=== PATIENT | female | born 1990 | race Caucasian/White ===

== ENCOUNTER 2017-04-16 10:01 | Emergency (ER) | payer MEDICAID ==
[~2017-04-16] VITALS: Ht 160 cm; Wt 66.0 kg
[~2017-04-16 10:01] MED LIST: SYNT25TA PO
[2017-04-16 10:02] VITALS: BP 118/75; PULSE 77; RESP 15; TEMP 98.3; O2SAT 99
[2017-04-16] MEDS ORDERED: SODIUM CHLOR 0.9% 1000 ML INJ 1,000 ML IV ONE (10:30)
[2017-04-16 11:18] LABS: AUTOMATED NEUTROPHIL # 6.4 TH/MM3 (1.8-7.7); BASOPHIL # 0.1 TH/MM3 (0-0.2); BASOPHIL % 0.9 % (0.0-2.0); EOSINOPHIL # 0.2 TH/MM3 (0-0.4); EOSINOPHIL % 1.9 % (0.0-4.0); HEMATOCRIT 42.4 % (35.0-46.0); HEMO FLAGS DIFF FINAL; LYMPHOCYTE # 2.2 TH/MM3 (1.0-4.8); MEAN CELL VOLUME 83.8 FL (80.0-100.0); MEAN CORPUSCULAR HEMOGLOBIN 27.6 PG (27.0-34.0); MONO % 8.3 % (0.0-8.0); NEUT % 65.9 % (16.0-70.0); PLATELET COUNT 195 TH/MM3 (150-450); RED BLOOD COUNT 5.06 MIL/MM3 (4.00-5.30); WHITE BLOOD COUNT 9.7 TH/MM3 (4.0-11.0)
--- NOTE | 2017-04-16 11:33 | PD ---
HPI Chief Complaint: Related Problem Time Seen by Provider: 10:20 Travel History International Travel<30 days: No Contact w/Intl Traveler<30days: No Traveled to known affect area: No History of Present Illness HPI Patient is a 27 year old female who comes in complaining of vaginal bleeding. She says she took a test yesterday and it was positive. She says today she had a lot of abdominal cramping and heavy vaginal bleeding. She says she had an episode of bleeding and severe pain last week, which she thought was her menstrual period. She says the pain was so severe last week, she considered calling 9--1, but did not. She denies dizziness or palpitations. She is still having some pain. She denies nausea or vomiting. She has had two prior pregnancies with no issues. [facility] Past Medical History Diminished Hearing: No Reproductive: Yes (PCOS) Thyroid Disease: Yes (HYPOTHYROIDISM) ?: LMP: 03/18/17 : 1 Para: 1 Miscarriage: 0 : 0 Social History Alcohol Use: No Tobacco Use: No Substance Use: No Allergies-Medications (Allergen,Severity, Reaction): Coded Allergies: No Known Allergies (Unverified , 04/16/17) Reported Meds & Prescriptions Reported Meds & Active Scripts Active Review of Systems Except as stated in HPI: all other systems reviewed are Neg General / Constitutional: No: Fever, Chills Eyes: No: Blurred Vision HENT: No: Headaches, Lightheadedness Cardiovascular: No: Chest Pain or Discomfort Respiratory: No: Shortness of Breath Gastrointestinal: Positive: Abdominal Pain Genitourinary: Positive: Vaginal Bleeding, No: Dysuria Musculoskeletal: No: Edema, Pain Skin: No Rash, No Change in Pigmentation Neurologic: No: Weakness, Dizziness Psychiatric: Positive: Anxiety Physical Exam Narrative GENERAL: Awake and alert, in no acute distress. SKIN: Focused skin assessment warm/dry. HEAD: Atraumatic. Normocephalic. EYES: Pupils equal and round. No scleral icterus. ENT: Mucous membranes pink and moist. NECK: Trachea midline. No JVD. CARDIOVASCULAR: Regular rate and rhythm. No murmur appreciated. RESPIRATORY: No accessory muscle use. Clear to auscultation. Breath sounds equal bilaterally. GASTROINTESTINAL: Abdomen soft, nondistended. Tender to palpation of the LLQ. No rebound or guarding. : Exam performed in the presence of a female nurse. large amount of bleeding from the os, os appears closed. No clots. No CMT. MUSCULOSKELETAL: No obvious deformities. No clubbing. No cyanosis. No edema. NEUROLOGICAL: Awake and alert. No obvious cranial nerve deficits. Motor grossly within normal limits. Normal speech. PSYCHIATRIC: Appropriate mood and affect; insight and judgment normal. Data Data Last Documented VS Vital Signs Date Time Temp Pulse Resp B/P Pulse Ox O2 Delivery O2 Flow Rate FiO2 04/16/17 10:21 16 04/16/17 10:02 98.3 77 118/75 99 Orders Iv Access Insert/Monitor (04/16/17 10:29) Complete Blood Count With Diff (04/16/17 10:29) Basic Metabolic Panel (Bmp) (04/16/17 10:29) Beta Hcg (Quant/Titer) (04/16/17 10:29) Type And Screen (04/16/17 10:29) Urinalysis - C+S If Indicated (04/16/17 10:29) Ed Urine Pregnancytest Poc (04/16/17 10:29) Sodium Chlor 0.9% 1000 Ml Inj (Ns 1000 M (04/16/17 10:30) Us Pelvis (Ques Pr/Ect)W Trans (04/16/17 ) Labs Laboratory Tests Test 04/16/17 04/16/17 10:30 10:35 Blood Type B POSITIVE Antibody Screen NEGATIVE Blood Bank Comment White Blood Count 9.7 TH/MM3 Red Blood Count 5.06 MIL/MM3 Hemoglobin 14.0 GM/DL Hematocrit 42.4 % Mean Corpuscular Volume 83.8 FL Mean Corpuscular Hemoglobin 27.6 PG Mean Corpuscular Hemoglobin 33.0 % Concent Red Cell Distribution Width 13.0 % Platelet Count 195 TH/MM3 Mean Platelet Volume 9.3 FL Neutrophils (%) (Auto) 65.9 % Lymphocytes (%) (Auto) 23.0 % Monocytes (%) (Auto) 8.3 % Eosinophils (%) (Auto) 1.9 % Basophils (%) (Auto) 0.9 % Neutrophils # (Auto) 6.4 TH/MM3 Lymphocytes # (Auto) 2.2 TH/MM3 Monocytes # (Auto) 0.8 TH/MM3 Eosinophils # (Auto) 0.2 TH/MM3 Basophils # (Auto) 0.1 TH/MM3 CBC Comment DIFF FINAL Differential Comment Urine Color YELLOW Urine Turbidity HAZY Urine pH 5.5 Urine Specific [place] 1.030 Urine Protein TRACE mg/dL Urine Glucose (UA) NEG mg/dL Urine Ketones NEG mg/dL Urine Occult Blood MOD Urine Nitrite NEG Urine Bilirubin NEG Urine Urobilinogen LESS THAN 2.0 MG/DL Urine Leukocyte Esterase NEG Urine RBC 4 /hpf Urine WBC 3 /hpf Urine Squamous Epithelial 1 /hpf Cells Urine Mucus MANY /lpf Microscopic Urinalysis Comment CULT NOT INDICATED Sodium Level 139 MEQ/L Potassium Level 4.0 MEQ/L Chloride Level 106 MEQ/L Carbon Dioxide Level 23.2 MEQ/L Anion Gap 10 MEQ/L Blood Urea Nitrogen 10 MG/DL Creatinine 1.00 MG/DL Estimat Glomerular Filtration 67 ML/MIN Rate Random Glucose 95 MG/DL Calcium Level 8.9 MG/DL Human Chorionic Gonadotropin, 13 MIU/ML Quant MDM Medical Decision Making Medical Screen Exam Complete: Yes Emergency Medical Condition: Yes Medical Record Reviewed: Yes Differential Diagnosis Threatened vs missed vs ectopic Narrative Course Patient is a 27-year-old female who comes in with vaginal bleeding in . Exam shows a large amount of blood from the os, however the os appears closed. IV established, labs sent. Beta hCG is 13. Other labs are unremarkable. Her blood type is B+. She is given IV fluids and reports feeling better. Ultrasound shows no IUP, no free fluid in the abdomen. This is early versus miscarriage. Patient advised of the results. She is advised to return in 2 days for repeat testing. Advised to practice pelvic rest. Advised to return any time for any worsening symptoms. Diagnosis Primary Impression: Threatened Patient Instructions: General Instructions, Threatened Miscarriage (ED) Additional Instructions: Your beta hCG was 13 today. You need to follow-up in 2 days for repeat testing. Drink plenty of fluids. Practice pelvic rest. Return any time for any worsening symptoms. Scripts No Active Prescriptions or Reported Meds Disposition: 01 DISCHARGE HOME Condition: Stable Cherelle Khan MD Apr 16, 2017 11:33
[2017-04-16 11:38] LABS: BLOOD, URINE MOD (NEG); COMMENT (UR) CULT NOT INDICATED; CULTURE IF INDICATED CULT NOT INDICATED; GLUCOSE,URINE NEG (NEG); KETONE, URINE NEG (NEG); MUCUS URINE MANY /lpf (OCC); NITRITE,URINE NEG (NEG); PH, URINE 5.5 (5.0-8.5); SQUAMOUS EPITHELIAL CELL URINE 1 /hpf (0-5); URINE COLOR YELLOW (YELLW/STRAW)
[2017-04-16 11:49] LABS: BICARBONATE 23.2 MEQ/L (21.0-32.0)
--- NOTE | 2017-04-16 12:30 | RADRPT ---
EXAM DATE/TIME: 04/16/2017 11:37 [place] COMPARISON: No previous studies available for comparison. INDICATIONS : Bleeding with . LAB(S): Beta-hC MEDICAL HISTORY : Hypothyroidism. . SURGICAL HISTORY : None. ENCOUNTER: Initial ACUITY: 1 week PAIN SCORE: 2/10 LOCATION: Bilateral pelvis MEASUREMENTS: UTERUS: 8.9 x 5.9 x 3.9 cm ENDOMETRIAL STRIPE: 9 mm RIGHT OVARY: 2.5 x 1.6 x 1.5 cm LEFT OVARY: 3.1 x 1.5 x 1.7 cm FREE FLUID: No CROWN RUMP LENGTH: Non visualized. = WKS DAYS FHR: Non visualized. BPM FINDINGS: UTERUS: The myometrium has homogeneous echotexture without mass. RIGHT OVARY: Ovary contains no mass or significant cystic lesion. LEFT OVARY: Ovary contains no mass or significant cystic lesion. MISCELLANEOUS: No free fluid. CONCLUSION: Unremarkable exam with no intrauterine gestational sac or adnexal mass. The study smith s not exclude ectopic . Mati Corral MD on April 16, 2017 at 12:25 Board Certified Radiologist. This report was verified electronically.
== END 2017-04-16 13:38 | disposition home or self-care (01) ==
LOC: NEPD 10:01
DX: O20.0 Threatened abortion (principal)
CPT/HCPCS: 76700; 76817; 80048; 81001; 84702; 84703; 85025; 86850; 86900; 86901; 99284; J7030

== ENCOUNTER 2017-04-18 10:37 | Emergency (ER) | payer MEDICAID ==
[2017-04-18 13:12] LABS: BETA HCG QUANT 6 MIU/ML (0-5)
== END 2017-04-18 12:40 | disposition home or self-care (01) ==
LOC: NED 10:37
DX: O26.891 Other specified pregnancy related conditions, first trimester (principal)
CPT/HCPCS: 84702; 99283

== ENCOUNTER 2017-09-03 07:29 | Emergency (ER) | payer MEDICAID, OTHER ==
[2017-09-03 07:40] VITALS: BP 132/75; PULSE 95; RESP 16; TEMP 98.2; O2SAT 100
[2017-09-03] MEDS ORDERED: PROZ20CA11 PO (07:52)
[2017-09-03] MEDS ORDERED: ARMO30TA PO (07:52)
[2017-09-03 09:02] LABS: AUTOMATED NEUTROPHIL # 8.9 TH/MM3 (1.8-7.7); BASOPHIL % 0.4 % (0.0-2.0); EOSINOPHIL # 0.3 TH/MM3 (0-0.4); EOSINOPHIL % 2.1 % (0.0-4.0); HEMATOCRIT 43.5 % (35.0-46.0); HEMOGLOBIN 14.6 GM/DL (11.6-15.3); LYMPH % 19.5 % (9.0-44.0); LYMPHOCYTE # 2.4 TH/MM3 (1.0-4.8); MEAN CELL VOLUME 82.3 FL (80.0-100.0); MEAN CORPUSCULAR HEMOGLOBIN 27.6 PG (27.0-34.0); MEAN CORPUSCULAR HGB CONC 33.6 % (32.0-36.0); MEAN PLATELET VOLUME 8.6 FL (7.0-11.0); MONO % 6.3 % (0.0-8.0); MONOCYTE # 0.8 TH/MM3 (0-0.9); NEUT % 71.7 % (16.0-70.0); PLATELET COUNT 293 TH/MM3 (150-450); RED BLOOD COUNT 5.28 MIL/MM3 (4.00-5.30); RED CELL DISTRIBUTION WIDTH 13.8 % (11.6-17.2); WHITE BLOOD COUNT 12.4 TH/MM3 (4.0-11.0)
[2017-09-03 09:12] LABS: BILIRUBIN, URINE NEG (NEG); BLOOD, URINE NEG (NEG); GLUCOSE,URINE NEG (NEG); KETONE, URINE 10 mg/dL (NEG); MUCUS URINE MANY /lpf (OCC); NITRITE,URINE NEG (NEG); RENAL EPITHELIAL CELLS <1 /hpf; SQUAMOUS EPITHELIAL CELL URINE 18 /hpf (0-5); URINE COLOR YELLOW (YELLW/STRAW); URINE LEUKOCYTE ESTERASE LARGE (NEG)
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
[2017-09-03 09:18] LABS: ALBUMIN 3.9 GM/DL (3.4-5.0); AST (GOT) 15 U/L (15-37); BICARBONATE 22.4 MEQ/L (21.0-32.0); BLOOD UREA NITROGEN 12 MG/DL (7-18); CALCIUM 8.8 MG/DL (8.5-10.1); CHLORIDE 104 MEQ/L (98-107); CREATININE 0.85 MG/DL (0.50-1.00); GLOMERULAR FILTRATION RATE 80 ML/MIN (>89); GLUCOSE,RANDOM 71 MG/DL (74-106); SODIUM (NA) 138 MEQ/L (136-145)
[2017-09-03 09:21] LABS: ALKALINE PHOSPHATASE 105 U/L (45-117); ALT (GPT) 14 U/L (10-53); TOTAL PROTEIN 8.2 GM/DL (6.4-8.2)
[2017-09-03 09:26] LABS: ACETAMINOPHEN LESS THAN 2.0 MCG/ML (10.0-30.0)
[2017-09-03] MEDS ORDERED: CEPH-460 PO (09:27)
[2017-09-03] MEDS ORDERED: CEPHALEXIN MONOHYDRATE 500 MG CAP PO SCH (09:30)
[2017-09-03] MEDS ORDERED: POTASSIUM CHLORIDE 20 MEQ CONTROLLED RELEASE TAB PO ONE (10:45)
[2017-09-03] MEDS ORDERED: ACETAMINOPHEN 325 MG TAB PO ONE (17:00)
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
[2017-09-03 18:22] VITALS: BP 132/75; PULSE 95; RESP 16; O2SAT 100
== END 2017-09-03 19:08 | disposition home or self-care (01) ==
LOC: NEPD 07:29 → NEPJ 19:08
DX: F43.25 Adjustment disorder with mixed disturbance of emotions and conduct (principal); F43.10 Post-traumatic stress disorder, unspecified; N39.0 Urinary tract infection, site not specified; E03.9 Hypothyroidism, unspecified; Z79.899 Other long term (current) drug therapy
CPT/HCPCS: 80053; 80307; 81001; 84702; 84703; 85025; 87491; 87591; 99283